=== PATIENT | female | born 1970 | race Caucasian/White ===

== ENCOUNTER 2016-07-12 18:22 | Emergency (ER) | payer BC ==
[2016-07-12 18:34] VITALS: BP 150/99
[2016-07-12] MEDS ORDERED: Sodium Chloride 0.9% 10 ML Syringe FLUSH PRN (19:11)
--- NOTE | 2016-07-12 19:22 | EDM.PDOC ---
ED HPI GI/ABDOMINAL - General Chief Complaint: Gastrointestinal Problem Stated Complaint: STOMACH PN, BLOODY STOOL Time Seen by Provider: 07/12/16 18:42 Source of Information: Reports: Patient History Limitations: Reports: No limitations - History of Present Illness INITIAL COMMENTS - FREE TEXT/NARRATIVE: Patient is a 46-year-old female presents ED complaining of epigastric/ periumbilical discomfort with blood within her stool. States this morning she noticed her stool was soft and dark red in nature. Pressure one hour later she had bright red blood within her stool. Denies any blood within the water itself. States her stomach has been aching want to while. Discomfort is rated a 4/10 with no radiation. She has a history of utilizing aspirin per hour on a frequent basis for generalized discomfort. Patient has been trying to get off the narcotic medications for chronic back discomfort. States she had one prior episode of similar findings this past April that resolved on its own accord. She denies any nausea, diarrhea, constipation, dysuria, fever/chills, recent weight loss, chest pain, sob, acid reflux, or any additional complaints. She has no history of PUD or diverticulitis, colitis, or inflammatory bowel disease. She has no history of blood within her stool. She denies any recent travel out of country, bad or questionable food, or consuming dirty drinking water. She was on antibiotics 2 wks ago. PMH: Hypothyroidism, hypertension, chronic back discomfort, sleep disorder. Current medications includes Lopressor, Synthroid, provided Surgical history: , no history of EGD or colonoscopy. Denies family history of colon cancer. Timing/Duration: Reports: Constant, Waxing/waning Location: periumbilical Quality: Reports: ache Severity: mild Improves with: Reports: other (none stated) Worsens with: Reports: other (none stated) Context: Denies: sick contact, bad/questionable food, out of country travel, recent surgery, recent trauma, lifting, activity/exercise Associated Symptoms (-Female): Reports: bloody stools. Denies: chest pain, shoulder pain, constipation, diarrhea, fever/chills, loss of appetite, malaise, nausea/vomiting Treatments [employer]ICER: Reports: Aspirin - Related Data Allergies/ADRs: Allergies Allergy/AdvReac Type Severity Reaction Status Date / Time No Known Allergies Allergy Verified 04/19/15 19:25 Home Meds: Home Meds Acetaminophen/HYDROcodone [[place] 325-7.5 MG] 1 tab PO Q6H PRN #10 tab 08/18/14 [ Rx] Ibuprofen 800 mg PO Q4H PRN 08/18/14 [History] Levothyroxine [Synthroid] 100 mcg PO ACBREAKFAST 02/05/15 [History] Gabapentin [Gabapentin] 600 mg PO BEDTIME 07/12/16 [History] Past Medical History Musculoskeletal History: Reports: Back pain, chronic Endocrine/Metabolic History: Reports: Hypothyroidism - Past Surgical History Female Surgical History: Reports: section, Hysterectomy Dermatological Surgical History: Reports: Plastic surgical reconstruction/repair Social & Family History - Family History Family Medical History: Noncontributory - Tobacco Use Smoking Status *Q: Current Every Day Smoker Years of Tobacco use: 25 Packs/Tins Daily: 0.5 Second Hand Smoke Exposure: No - Caffeine Use Caffeine Use: Reports: Energy drinks, Soda - Alcohol Use Days Per Week of Alcohol Use: 0 - Recreational Drug Use Recreational Drug Use: No ED ROS GENERAL - Review of Systems Review Of Systems: See Below Constitutional: Denies: fever, chills, malaise, weakness, decreased appetite HEENT: Reports: No symptoms Respiratory: Reports: cough, sputum (clear). Denies: shortness of breath Cardiovascular: Reports: Blood pressure problem. Denies: Chest pain, Lightheadedness, Palpitations GI/Abdominal: Reports: Abdominal pain, Black stool, Bloody stool. Denies: Anorexia, Constipation, Diarrhea, Decreased appetite, Difficulty swallowing, Distension, Flatus, Hematemesis, Melena, Nausea, Vomiting : Denies: dysuria, frequency, hematuria, pain, urgency Musculoskeletal: Denies: back pain Neurological: Denies: dizziness Hematologic/Lymphatic: Denies: easy bleeding ED EXAM, GI/ABD - Physical Exam Exam: See Below Exam Limited By: No limitations General Appearance: alert, WD/WN, no apparent distress Ears: hearing grossly normal Nose: normal inspection Throat/Mouth: Normal inspection, Normal oropharynx, Normal voice, No airway compromise Neck: normal inspection, supple, non-tender Respiratory/Chest: no respiratory distress, normal breath sounds, wheezing ( intermittent wheezes cleared with cough) Cardiovascular: normal peripheral pulses, regular rate, rhythm GI/Abdominal: normal bowel sounds, soft, no organomegaly, no distention, no abnormal bruit, no mass, tenderness (mild tenderness epigastric/periumbilical region. ) (Female) Exam: Deferred Rectal (Female) Exam: Heme + stool. No: Tenderness Back Exam: normal inspection, full range of motion. No: CVA tenderness (L), CVA tenderness (R) Neurological: alert, oriented, CN II-XII intact, normal cognition, no motor/ sensory deficits Psychiatric: normal affect, normal mood Skin Exam: Warm, Dry, Intact, Normal color, No rash Course - Vital Signs Last Recorded V/S: Last Vital Signs Temp 98.0 F 07/12/16 18:29 Pulse 88 07/12/16 18:29 Resp 16 07/12/16 18:29 BP 150/99 H 07/12/16 18:29 Pulse Ox 100 07/12/16 18:29 - Orders/Labs/Meds Orders: Active Orders 24 hr Category Date Time Status Peripheral IV Care [RC] . DIRECTED Care 07/12/16 19:11 Active Hemoccult [OCCULT BLOOD DIAGNOSTIC] [OP] Stat Lab 07/12/16 19:16 Ordered Sodium Chloride 0.9% [Saline Flush] Med 07/12/16 19:11 Active 10 ml FLUSH ASDIRECTED PRN Peripheral IV Insertion Adult [OM.PC] Stat Oth 07/12/16 19:11 Ordered Medication Orders Sodium Chloride (Saline Flush) 10 ml FLUSH ASDIRECTED PRN PRN Reason: Keep Vein Open Last Admin: 07/12/16 19:24 Dose: 10 ml Labs: Laboratory Tests 07/12/16 07/12/16 07/12/16 Range/Units 19:23 19:23 19:23 WBC 5.05 (3.98-10.04) K/mm3 RBC 4.19 (3.98-5.22) M/mm3 Hgb 13.2 (11.2-15.7) gm/L Hct 40.0 (34.1-44.9) % MCV 95.5 H (79.4-94.8) fl MCH 31.5 (25.6-32.2) pg MCHC 33.0 (32.2-35.5) g/dl RDW Std Deviation 47.8 H (36.4-46.3) fL Plt Count 286 (182-369) K/mm3 MPV 9.9 (9.4-12.3) fl Neut % (Auto) 48.3 (34.0-71.1) % Lymph % (Auto) 34.1 (19.3-51.7) % Cecil % (Auto) 10.3 (4.7-12.5) % Eos % (Auto) 5.9 H (0.7-5.8) Baso % (Auto) 1.4 H (0.1-1.2) % Neut # 2.44 (1.56-6.13) K/mm3 Lymph # 1.72 (1.18-3.74) K/mm3 Cecil # 0.52 H (0.24-0.36) K/mm3 Eos # 0.30 (0.04-0.36) K/mm3 Baso # 0.07 (0.01-0.08) K/mm3 Sodium 144 (136-145) mEq/L Potassium 4.0 (3.5-5.1) mEq/L Chloride 107 (98-107) mEq/L Carbon Dioxide 27 (21-32) mEq/L Anion Gap 14.0 (5-15) BUN 18 (7-18) mg/dL Creatinine 0.9 (0.55-1.02) mg/dL Est Cr Clr Drug Dosing 60.46 mL/min Estimated GFR (MDRD) > 60 (>60) mL/min BUN/Creatinine Ratio 20.0 H (14-18) Glucose 93 (74-106) mg/dL Calcium 8.9 (8.5-10.1) mg/dL Total Bilirubin 0.1 L (0.2-1.0) mg/dL AST 21 (15-37) U/L ALT 33 (14-59) U/L Alkaline Phosphatase 91 (46-116) U/L C-Reactive Protein < 0.2 (<1.0) mg/dL Total Protein 6.8 (6.4-8.2) g/dl Albumin 3.7 (3.4-5.0) g/dl Globulin 3.1 gm/dL Albumin/Globulin Ratio 1.2 (1-2) Lipase 189 (73-393) U/L Urine Color (Yellow) Urine Appearance (Clear) Urine pH (5.0-8.0) Ur Specific [place] (1.005-1.030) Urine Protein (Negative) Urine Glucose (UA) (Negative) Urine Ketones (Negative) Urine Occult Blood (Negative) Urine Nitrite (Negative) Urine Bilirubin (Negative) Urine Urobilinogen (0.2-1.0) Ur Leukocyte Esterase (Negative) Urine RBC (0-5) /hpf Urine WBC (0-5) /hpf Ur Squamous Epith Cells (0-5) /hpf Urine Bacteria (FEW) /hpf Urine Mucus (FEW) /hpf H. pylori IgG Antibody Negative (NEGATIVE) 07/12/16 Range/Units 20:00 WBC (3.98-10.04) K/mm3 RBC (3.98-5.22) M/mm3 Hgb (11.2-15.7) gm/L Hct (34.1-44.9) % MCV (79.4-94.8) fl MCH (25.6-32.2) pg MCHC (32.2-35.5) g/dl RDW Std Deviation (36.4-46.3) fL Plt Count (182-369) K/mm3 MPV (9.4-12.3) fl Neut % (Auto) (34.0-71.1) % Lymph % (Auto) (19.3-51.7) % Cecil % (Auto) (4.7-12.5) % Eos % (Auto) (0.7-5.8) Baso % (Auto) (0.1-1.2) % Neut # (1.56-6.13) K/mm3 Lymph # (1.18-3.74) K/mm3 Cecil # (0.24-0.36) K/mm3 Eos # (0.04-0.36) K/mm3 Baso # (0.01-0.08) K/mm3 Sodium (136-145) mEq/L Potassium (3.5-5.1) mEq/L Chloride (98-107) mEq/L Carbon Dioxide (21-32) mEq/L Anion Gap (5-15) BUN (7-18) mg/dL Creatinine (0.55-1.02) mg/dL Est Cr Clr Drug Dosing mL/min Estimated GFR (MDRD) (>60) mL/min BUN/Creatinine Ratio (14-18) Glucose (74-106) mg/dL Calcium (8.5-10.1) mg/dL Total Bilirubin (0.2-1.0) mg/dL AST (15-37) U/L ALT (14-59) U/L Alkaline Phosphatase (46-116) U/L C-Reactive Protein (<1.0) mg/dL Total Protein (6.4-8.2) g/dl Albumin (3.4-5.0) g/dl Globulin gm/dL Albumin/Globulin Ratio (1-2) Lipase (73-393) U/L Urine Color Light yellow (Yellow) Urine Appearance Clear (Clear) Urine pH 6.5 (5.0-8.0) Ur Specific [place] > or = 1.030 (1.005-1.030) Urine Protein Negative (Negative) Urine Glucose (UA) Negative (Negative) Urine Ketones Negative (Negative) Urine Occult Blood Negative (Negative) Urine Nitrite Negative (Negative) Urine Bilirubin Negative (Negative) Urine Urobilinogen 0.2 (0.2-1.0) Ur Leukocyte Esterase Negative (Negative) Urine RBC 0-5 (0-5) /hpf Urine WBC 0-5 (0-5) /hpf Ur Squamous Epith Cells 0-5 (0-5) /hpf Urine Bacteria Not seen (FEW) /hpf Urine Mucus Not seen (FEW) /hpf H. pylori IgG Antibody (NEGATIVE) Meds: Medications Generic Name Dose Route Start Last Admin Trade Name Kevin PRN Reason Stop Dose Admin Sodium Chloride 10 ml 07/12/16 19:11 07/12/16 19:24 Saline Flush FLUSH 10 ml ASDIRECTED PRN Administration Keep Vein Open Discontinued Medications Generic Name Dose Route Start Last Admin Trade Name Fresteve PRN Reason Stop Dose Admin Pantoprazole Sodium 40 mg 07/12/16 20:40 Protonix Iv IVPUSH 07/12/16 20:41 ONETIME ONE - Re-Assessments/Exams Free Text/Narrative Re-Assessment/Exam: Will obtain a peripheral IV with basic labs including CBC, chem 14, CRP, lipase , UA with Micro, and also H. pylori. Hemoccult test was positive for blood. Labs reviewed : CBC and chem 14 were essentially normal. UA was negative. H. pylori was negative. 07/12/16 20:30 07/12/16 20:37 Reassessment, patient has no discomfort as we speak. She is hungry and wishing to be discharged home. Will not be able to obtain stool sample since patient is unable to. She will be referred to the [facility] for EGD/Colonoscopy. I suspect cause of rectal bleeding may be associated with PUD with patient taking excessive ASA. She will be started on a PPI. Discharge instructions as documented. Departure - Departure Time of Disposition: 20:40 Disposition: Home, Self-Care 01 Condition: good Clinical Impression: Rectal bleeding, Bloated abdomen Referrals: James Fraire MD [Physician] - Bj Stewart [Physician] - Forms: ED Department Discharge Additional Instructions: Please refrain from taking aspirin or any NSAIDs. Utilize Tylenol as needed for discomfort. Take Prilosec 40 mg every day for 2 weeks. Please followup with a provider at [facility] for further evaluation and treatment in the next 1-2 wks to schedule EGD and colonoscopy. Refrain from smoking or vaping. Return to the E.D. for any new or worsening symptoms. - My Orders Last 24 Hours: My Active Orders 07/12/16 19:11 Peripheral IV Care [RC] . DIRECTED Sodium Chloride 0.9% [Saline Flush] 10 ml FLUSH ASDIRECTED PRN Peripheral IV Insertion Adult [OM.PC] Stat 07/12/16 19:16 Hemoccult [OCCULT BLOOD DIAGNOSTIC] [OP] Stat - Assessment/Plan Last 24 Hours: My Active Orders 07/12/16 19:11 Peripheral IV Care [RC] . DIRECTED Sodium Chloride 0.9% [Saline Flush] 10 ml FLUSH ASDIRECTED PRN Peripheral IV Insertion Adult [OM.PC] Stat 07/12/16 19:16 Hemoccult [OCCULT BLOOD DIAGNOSTIC] [OP] Stat
[2016-07-12] MEDS ORDERED: Pantoprazole 40 MG Vial IVPUSH ONE (20:40)
== END 2016-07-12 21:00 | disposition home or self-care (01) ==
LOC: JD.ED 18:22
DX: K62.5 Hemorrhage of anus and rectum (principal); R14.0 Abdominal distension (gaseous); E03.9 Hypothyroidism, unspecified; Z90.710 Acquired absence of both cervix and uterus; Z98.890 Other specified postprocedural states; F17.210 Nicotine dependence, cigarettes, uncomplicated
CPT/HCPCS: 36415; 80053; 81001; 82270; 83690; 85025; 86140; 86677; 96374; 99285; C9113; J7050; 99284

== ENCOUNTER 2017-09-19 20:47 | Emergency (ER) | payer BC ==
[2017-09-19 20:57] VITALS: BP 145/115
[2017-09-19] MEDS ORDERED: Benoxinate/Fluorescein 0.4-0.25% Ophth Soln 5 ML Bottle EYERT ONE (21:21)
--- NOTE | 2017-09-19 21:53 | EDM.PDOC ---
ED HPI GENERAL MEDICAL PROBLEM - General Chief Complaint: Eye Problems Stated Complaint: EYE PROBLEMS Time Seen by Provider: 09/19/17 21:07 Source of Information: Reports: Patient History Limitations: Reports: No Limitations - History of Present Illness INITIAL COMMENTS - FREE TEXT/NARRATIVE: The patient presents with irritation and redness of her right eye. This has been going on for about 1 week. She is not sure if she injured it. 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 She does not recall getting any in her eye. She has no bleeding problems and no trouble with her vision. Onset: Gradual Duration: Week(s): (1) Location: Reports: Other (Right eye) Quality: Reports: Other ([place]) Severity: Mild Improves with: Reports: None Worsens with: Reports: None Associated Symptoms: Reports: No Other Symptoms - Related Data Allergies Allergy/AdvReac Type Severity Reaction Status Date / Time No Known Allergies Allergy Verified 09/19/17 20:57 Home Meds: Home Meds Lisinopril 20 mg PO DAILY 09/19/17 [History] Pregabalin [Lyrica] 75 mg PO BID 09/19/17 [History] Past Medical History Other HEENT History: wears eyeglasses Cardiovascular History: Reports: High Cholesterol, Hypertension Gastrointestinal History: Reports: None 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: , Prolapsed Uterus Musculoskeletal History: Reports: Back Pain, Chronic Endocrine/Metabolic History: Reports: Hypothyroidism - Past Surgical History Cardiovascular Surgical History: Reports: None Respiratory Surgical History: Reports: None GI Surgical History: Reports: None Female Surgical History: Reports: Section, Hysterectomy Dermatological Surgical History: Reports: Plastic Surgical Reconstruction/Repair Social & Family History - Family History Family Medical History: Noncontributory - Tobacco Use Smoking Status *Q: Never Smoker - Caffeine Use Caffeine Use: Reports: None - Recreational Drug Use Recreational Drug Use: No ED ROS GENERAL - Review of Systems Review Of Systems: See Below Constitutional: Reports: No Symptoms HEENT: Reports: Eye Pain (Discomfort) Respiratory: Reports: No Symptoms Cardiovascular: Reports: No Symptoms Endocrine: Reports: No Symptoms GI/Abdominal: Reports: No Symptoms : Reports: No Symptoms Musculoskeletal: Reports: No Symptoms ED EXAM GENERAL W FULL EYE - Physical Exam Exam: See Below Exam Limited By: No Limitations General Appearance: Alert, No Apparent Distress Eye Exam: Right Eye: Bleeding (Subconjunctival), Corneal Abrasion (Small with no FB), Bilateral Eye: EOMI, PERRL Eyelids: Bilateral: Normal Appearance Conjunctiva & Sclera: Right: Subconjuctival Hemorrhage Cornea Exam: Right: Corneal Abrasion (Small) Extraocular Movements: Bilateral: Intact Pupillary Size: Bilateral: 4 mm Pupillary Reaction: Bilateral: Brisk Anterior Chamber: Right: Normal Appearance Posterior Chamber: Right: Normal Funduscopic Ears: Normal External Exam Nose: Normal Inspection Head: Atraumatic, Normocephalic Neck: Normal Inspection Respiratory/Chest: No Respiratory Distress Course - Vital Signs Last Recorded V/S: Last Vital Signs Temp 98.7 F 09/19/17 20:55 Pulse 82 09/19/17 20:55 Resp 16 09/19/17 20:55 BP 145/115 H 09/19/17 20:55 Pulse Ox 98 09/19/17 20:55 - Orders/Labs/Meds Meds: Medications Discontinued Medications Generic Name Dose Route Start Last Admin Trade Name Kevin PRN Reason Stop Dose Admin Fluorescein Sodium/Benoxinate HCl 1 ml 09/19/17 21:21 Fluress Ophth Soln EYERT 09/19/17 21:22 ONETIME ONE - Re-Assessments/Exams Free Text/Narrative Re-Assessment/Exam: 09/19/17 21:51 She does have a small corneal abrasion and a subconjunctival hemorrhage. I will get her on some cipro drops. Departure - Departure Time of Disposition: 21:55 Disposition: Home, Self-Care 01 Condition: Good Clinical Impression: Subconjunctival hemorrhage of right eye Corneal abrasion Qualifiers: Encounter type: initial encounter Laterality: right Qualified Code(s): S05.01XA - Injury of conjunctiva and corneal abrasion without foreign body, right eye, initial encounter - Discharge Information Referrals: PCP,Not In Area [Primary Care Provider] - Additional Instructions: Use the cipro drops 1 drop in the right eye every 4 hours while awake for 1 weeks. Follow up with an zookeeper in [facility] if you are not better in 1 week. Please return if you are worse.
[2017-09-19] MEDS ORDERED: Ciprofloxacin 0.3% Ophth Soln 2.5 ML Bottle ONE (21:58)
[2017-09-20] MEDS ORDERED: Ciprofloxacin 0.3% Ophth Soln 2.5 ML Bottle EYERT SCH (01:00)
== END 2017-09-19 22:03 | disposition home or self-care (01) ==
LOC: JD.ED 20:47
DX: S05.01XA Injury of conjunctiva and corneal abrasion without foreign body, right eye, initial encounter (principal); H11.31 Conjunctival hemorrhage, right eye; E78.00 Pure hypercholesterolemia, unspecified; I10 Essential (primary) hypertension; E03.9 Hypothyroidism, unspecified; Z79.899 Other long term (current) drug therapy; X58.XXXA Exposure to other specified factors, initial encounter
CPT/HCPCS: 99282